=== PATIENT | female | born 1940 | race Caucasian/White ===

== ENCOUNTER 2022-11-07 13:02 | Outpatient (RCR) | payer MEDICARE, BC, SELFPAY ==
--- NOTE | 2022-11-07 14:00 | PT.OPEX ---
PT [place] Out[facility] Eval PT [facility] Out[facility] Eval Start: 11/07/22 12:37 Freq: Status: Active Protocol: Document 11/07/22 12:38 AMI (Rec: 11/07/22 13:56 YEAGERV [id number]) E-signed By Juany Tsang Physical Therapy Outpatient Evaluation Insurance Information Recert Due Date 02/06/23 Insurance Name Medicare B,Blue [employer] Medical Diagnosis M17.11 OA of R knee Z96.651 Presence of artificial R knee joint Treating Diagnosis M25.561 R knee pain M25.661 Stiffness of R knee Referring MD Tovar Subjective Subjective Pt presents pre-op only RTKA on 11/22/[address] Tovar. Pt reports that she was scheduled to get a knee replacement 2 years ago but it started feeling better after she started riding her bike again. It is now giving her more trouble. X-rays show bone on bone. Walking gives patient the most pain. Uses ice and Tylenol for pain management. Pt lives with who has dementia, daughter will be staying for 6 days, then another daughter will be staying for an additional 5 days. Two story home, will stay on main level. 2 steps to enter, B rails. Walk in shower with bath bench. Daughter will be bringing 2WW. Pain Comments -10/24 Date of Next Physician Visit 11/30/22 Date of Surgery (If applicable) 11/22/22 Current Work Status Retired Precautions Treatment Precautions/Contraindications PMHx: LTSA in 2020 Therapy Limitations/Systems Review Not Limited Objective Range of Motion R knee ROM = 0-116 L knee ROM = 0-120 Hamstring length = R hamstring length limited compared to L Strength Hip flexion L/R = 4-/4- Hip abd L/R = 4+/4+ Hip add L/R = 4+/4+ Quads L/R = 4+/4+ Hamstrings L/R = 5/5 Palpation B patellar mobilization WNLs Assessment Assessment/Impression Pt is a 82yo F presenting pre- op only for RTKA on 11/22/22. PMHx: LTSA in 2020. Pt reports that pain has been present for years. Inc with walking. Uses Tylenol and ice for pain management. Pt lives in 2 story home with spouse who has dementia. Pt's two daughter will be staying with her for two weeks. Walk in shower with bath bench. Pt displays dec B hip flexor weakness, dec R knee flexion compared to L, and dec hamstring length on R compared to L. Pt was educated on HEP, POC, post-op precautions, swelling and pain management, fall prevention, equipment needs, and stair training. Pt will be doing post-op PT at [facility]. Primary Functional Limitations Pain with functional activity LE weakness Gait deficits Plan of Care Rehabilitation Potential Excellent Physical Therapy Goals In one session: 1. Pt will be IND with HEP in order to perform at home post- op IND. 2. Pt will navigate 4 steps with B rails using proper step sequencing in order to enter/ exit home safely post-op. 3. Pt will provide verbal understanding of post-op precautions in order to reduce risk of post-op complications . Coordination/Communication With Referral Source Treatment Plan/Direct Interventions Self-Care/Home Management, Therapeutic Exercises Frequency/Duration 1x only (pre-op only) Patient Will Be Discharged From Therapy Completion of LTG(s), Independent w/HEP Evaluation Billing Untimed Code Treatment Minutes 10 PT Eval No Charge No Complexity Low Certification Information Initial Certification Date 11/07/22 Ending Certification Date 02/06/23 Provider Signature Shows Agreement With POC & Medical Necessity Physician Comment/Change : Physician NPI Number #
== END 2022-12-15 10:36 | disposition home or self-care (01) ==
PROVIDERS: PCP Family Medicine; Visit Provider Orthopaedic Surgery
DX: M17.11 Unilateral primary osteoarthritis, right knee (principal); Z96.651 Presence of right artificial knee joint; Z51.89 Encounter for other specified aftercare
CPT/HCPCS: 97110; 97161; 97535

== ENCOUNTER 2022-11-22 07:43 | Day surgery (SDC) | payer MEDICARE, BC, SELFPAY ==
[2022-11-22] VITALS (24 sets, daily range): BP systolic 104–136; BP diastolic 55–97; PULSE 58–78; RESP 14–20; TEMP 35.7–36.7; O2SAT 89–99; BMI 26.4
[2022-11-22] MEDS: OXYCODONE (CR) 10 MG TAB.ER.12H PO (07:47)
[2022-11-22] MEDS: LACTATED RINGERS 1000 ML 1,000 ML 100 ML IV (07:50)
[2022-11-22] MEDS: ACETAMINOPHEN 500 MG TABLET 1000 MG PO ×3 (08:45→21:29)
[2022-11-22] MEDS: fentaNYL 100 MCG/2 ML inj IVP (08:50)
[2022-11-22] MEDS: MIDAZOLAM HCL 1 MG/ML inj IVP (08:50)
--- NOTE | 2022-11-22 09:01 | SUR.PREOP ---
TIME?OUT:?0845 PT/RN/MDA?VERIFICATION?OF?SURGICAL?SITE,?PROCEDURE,?AND?CONSENT OBTAINED?PRIOR?TO?INVASIVE?PROCEDURE.
--- NOTE | 2022-11-22 10:26 | CRLHL7_ITS ---
For Patients: As a result of the Cures Act, medical imaging exams and procedure reports are released immediately into your electronic medical record. You may view this report before your referring provider. If you have questions, please contact your health care provider. Indication: POST OP TKA Technique: Two views right knee Findings/Impression: Hardware from a right total knee arthroplasty is in satisfactory position. Bone alignment is normal. No sign of acute fracture. Postop changes are within normal limits. Dictated by Jim Garcia MD @ 11/22/2022 12:31:28 PM (Electronically Signed)
--- NOTE | 2022-11-22 10:28 | PM.ORPRC ---
Procedure Note Date of procedure: 11/22/22 Procedure: PREOPERATIVE DIAGNOSIS: Right knee osteoarthritis POSTOPERATIVE DIAGNOSIS: Right knee osteoarthritis NAME OF OPERATION: Right total knee arthroplasty SURGEON: Negrito Tovar MD COMPUTER INSTRUCTOR: Sarah Mcbride PA-C ANESTHESIA: Spinal ESTIMATED BLOOD LOSS: 0 mL COMPLICATIONS: None SPECIMENS: None DRAINS: None PREOPERATIVE ANTIBIOTICS: Ancef 2 grams IMPLANTS: 1. J&J Attune # 6 narrow posterior stabilized femur 2. #4 fixed-bearing tibia 3. #6 posterior stabilized, 5 mm fixed-bearing polyethylene 4. 38 patella INDICATIONS: The patient is a 82-year-old with a longstanding history of severe, unrelenting right knee pain secondary to end-stage (grade IV) right knee osteoarthritis. Despite appropriate nonoperative management, including activity modification, anti-inflammatories, uwqy-bvj-yxwzshk pain medication, bracing, physical therapy, and injections they continue to have pain and disability. Operative intervention was offered. The risks, benefits and expected outcomes were discussed in detail. These included but were not limited to: Infection, bleeding, injury to blood vessel or nerve, venous thromboembolism. All questions were answered to their satisfaction. Use of an radiology physician assistant was necessary throughout the case for patient positioning and safety, soft tissue retraction, and closure. PROCEDURE: Spinal anesthesia was administered. The patient was placed supine on the operating table. The radiology physician assistant made sure the patient was positioned appropriately. The lower extremity was prepped and draped in the usual sterile fashion. The limb was exsanguinated with the Armin bandage. The pneumatic tourniquet was inflated to 300 mmHg. A standard anterior incision was made with the knee in flexion. Subcutaneous dissection was sharply taken through fascial layer #1. Full-thickness medial and lateral flaps were elevated. The radiology physician assistant retracted the soft tissues and protected them throughout the case. A standard medial parapatellar approach was made. The patella was everted. The infrapatellar fat pad was preserved. The menisci and cruciate ligaments were sharply d?brided. Marginal osteophytes were d?brided with the rongeur. The drill was used to penetrate the femoral canal. The canal was aspirated and irrigated with pulse lavage. The intramedullary femoral guide was placed for a 5-degree valgus cut, removing 10 mm off the distal femur. The saw was used to make the cut. Whitesides line and the trans epicondylar axis were marked. The femoral sizing guide was pinned onto the distal femur. Three degrees of external rotation nicely parallels the transepicondylar axis. Pins were placed for posterior referencing. The four-in-one cutting guide was pinned onto the distal femur. The anterior, posterior, and chamfer cuts were made. The radiology physician assistant protected the collateral ligaments. The box cutting guide was pinned. The box cuts were made. The boxed trial was placed and was an excellent fit. Drill holes for the lugs were made. Attention was then turned to the proximal tibia. The extramedullary tibial guide was placed for a neutral varus/valgus cut with 5 degrees of posterior slope, removing 1 mm based off the medial tibial surface. The radiology physician assistant protected the collateral ligaments and the neurovascular bundle. The saw was used to make the cut. Trial components were placed. The knee was nicely balanced in both flexion and extension. The trial components were removed. The tray was placed in appropriate rotation, parallel to our tibial cutting pins. It was pinned by the radiology physician assistant and the drill and the punch were used. The tray was removed. The punch was used again. We placed a bone plug in the femoral canal. Attention was then turned to the patella. [place] patellar thickness was 21 mm. The lobster claw resection guide was used with the 7.5 mm burton. The saw was used to make the cut. Drill holes were made by the radiology physician assistant. The trial was placed and was an excellent fit. Cancellous surfaces were irrigated with pulse lavage and thoroughly dried by the radiology physician assistant. We cemented the tibial component, then the femoral component. We impacted the 5 mm polyethylene onto the tibial tray. The knee was brought into full extension. We then cemented the patellar component. Excessive cement was removed. The cement was allowed to harden. The knee was taken through a range of motion and was found to be nicely balanced in both flexion and extension. The patella tracks centrally. The radiology physician assistant did a three minute dilute Betadine solution soak. The radiology physician assistant irrigated the wound with 3 liters of normal saline via pulse lavage. The radiology physician assistant reapproximated the extensor mechanism with #1 Vicryl in an interrupted ffxmvi-go-aiupy fashion. The radiology physician assistant then ran the extensor mechanism with a #1 PDO Stratafix. The radiology physician assistant closed the subcutaneous tissues with a 3-0 Stratafix and the skin with a running 3-0 Stratafix in a subcuticular fashion. Glue was used to seal the skin. The radiology physician assistant placed a dry dressing, DEWEY stocking, and Polar Care. Sponge and needle counts were correct x2. The patient tolerated the procedure well. There were no apparent complications. They were carefully transferred to the hospital bed and taken to the postanesthesia care unit in satisfactory condition. PLAN: The patient will be mobilized with physical therapy. Eliquis will be used for DVT prophylaxis. They will be discharged to home once medically appropriate.
--- NOTE | 2022-11-22 11:24 | P.ANES_ITS ---
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
[2022-11-22] MEDS: HYDROmorphone 0.5 mg/0.5 ml inj IVP (12:46)
--- NOTE | 2022-11-22 14:44 | PM.IMCN1 ---
Date of Consult Consult date: 11/22/22 Requesting Physician: Orthopedics Primary Care Provider: Jessica Zurita MD Consult Narrative Reason for consult: hypertension, afib Narrative: Fernanda Wolfe is a 82 year old female who underwent an elective right total knee arthroplasty today for severe osteoarthritis. Her pain is well controlled and she is sitting up in a chair eating dinner. She has no complaints. Review of Systems Status of ROS: Reports: 6 or more systems reviewed and unremarkable except as noted in History and below PFSH PFS Medical History (Updated 11/22/22 @ 19:05 by Alana Hess MD) Vitiligo ?L80 - Vitiligo (ICD-10) PAC (premature atrial contraction) ?I49.1 - Atrial premature depolarization (ICD-10) Impaired fasting glucose ?R73.01 - Impaired fasting glucose (ICD-10) Osteopenia ?M85.80 - Other specified disorders of bone density and structure, unspecified site (ICD-10) Rosacea, unspecified ?L71.9 - Rosacea, unspecified (ICD-10) Atrophic vaginitis ?N95.2 - Postmenopausal atrophic vaginitis (ICD-10) Postnasal drip ?R09.82 - Postnasal drip (ICD-10) Personal history of other malignant neoplasm of skin ?Z85.828 - Personal history of other malignant neoplasm of skin (ICD-10) Female genital prolapse ?N81.9 - Female genital prolapse, unspecified (ICD-10) Atrial fibrillation ?I48.91 - Unspecified atrial fibrillation (ICD-10) Hyperlipidemia ?E78.5 - Hyperlipidemia, unspecified (ICD-10) Hypertension ?I10 - Essential (primary) hypertension (ICD-10) Surgical History (Updated 11/22/22 @ 19:03 by Alana Hess MD) History of bladder surgery ?Z98.890 - Other specified postprocedural states (ICD-10) Hx of colonoscopy ?Z98.890 - Other specified postprocedural states (ICD-10) Hx of breast biopsy (~1995) ?Z98.890 - Other specified postprocedural states (ICD-10) H/O: hysterectomy (~2015) ?Z90.710 - Acquired absence of both cervix and uterus (ICD-10) History of reverse total replacement of left shoulder joint (2020) ?Z98.890 - Other specified postprocedural states (ICD-10) Family History (Updated 11/22/22 @ 14:44 by Alana Hess MD) Father Lung cancer Mother Myocardial infarction Sister High blood pressure Paternal Grandmother Breast cancer Social History (Updated 11/22/22 @ 17:54 by Alana Hess MD) Narrative: Retired from [employer]. Never smoker. 1alcoholic drink per month. Denies recreational drug use. Smoking Status: Never smoker Do you use any of these nicotine containing products: None Second hand tobacco smoke exposure: No How often do you have a drink containing alcohol: monthly or less Alcohol type: wine and hard liquor How many standard drinks containing alcohol do you have on a typical day: 1 or 2 How often do you have six or more drinks on one occasion: Never AUDIT-C Alcohol total score: 1 Non-prescribed substance use: denies use Caffeine: Yes (coffee, 1 cup/day) service: No Meds Home Medications and Allergies Home Medications Medication Instructions Recorded Confirmed Type alendronate 70 mg tablet 70 mg PO Q7D 09/19/22 11/22/22 History amlodipine 2.5 mg tablet 2.5 mg PO BID 09/19/22 11/22/22 History ammonium lactate 12 % topical cream 1 applic topical BID PRN 09/19/22 11/22/22 History apixaban 5 mg tablet (Eliquis) 5 mg PO BID 09/19/22 11/22/22 History atenolol 50 mg tablet 50 mg PO BID 09/19/22 11/22/22 History atorvastatin 10 mg tablet 10 mg PO HS 09/19/22 11/22/22 History duloxetine 30 mg capsule,delayed 30 mg PO DAILY 09/19/22 11/22/22 History release estradiol 10 mcg vaginal tablet 10 mcg vaginal 2XW 09/19/22 11/22/22 History metronidazole 0.75 % topical cream 1 applic topical DAILY PRN 09/19/22 11/22/22 History tretinoin 0.1 % topical cream 1 applic topical HS PRN 09/19/22 11/22/22 History (Retin-A) triamcinolone acetonide 0.1 % 1 applic topical BID PRN 09/19/22 11/22/22 History topical cream valsartan 320 1 tab PO DAILY 09/19/22 11/22/22 History mg-hydrochlorothiazide 12.5 mg tablet calcium carbonate 600 mg-vitamin 1 tab PO DAILY 11/22/22 11/22/22 History D3 10 mcg (400 unit) tablet (Calcium 600 + D(3)) Allergies Allergy/AdvReac Type Severity Reaction Status Date / Time fenoprofen Allergy Verified 11/22/22 08:06 ibuprofen Allergy Abdominal Verified 11/22/22 09:05 Pain diphenhydramine AdvReac Unknown Irritable Verified 11/22/22 09:05 aspirin AdvReac Gastrointestinal Verified 11/22/22 08:06 Upset lisinopril AdvReac Cough Verified 11/22/22 08:06 methocarbamol AdvReac Headache Verified 11/22/22 08:06 Exam Narrative: Exam Narrative: General: No acute distress. Awake alert oriented x3. HEENT: Normocephalic atraumatic, pupils equally round and reactive to light and accommodation. Oropharynx clear. Mucous membranes are moist. No cervical lymphadenopathy, thyromegaly or carotid bruits. No JVD. Cardiovascular: Regular rate and rhythm. No murmurs, gallops, or rubs. Chest: No increased work of breathing. Clear to auscultation bilaterally. No crackles or wheezes. Abdomen: Bowel sounds present. Soft, nondistended, nontender. No hepatosplenomegaly or masses. Extremities: Right knee bandage is clean, dry, and intact. No edema, no cyanosis or clubbing. Skin: No jaundice, no pallor, no rashes. Const: Vital Signs, click to edit/add: Vital Signs - 24 hr 11/22/22 08:30 11/22/22 08:45 11/22/22 11:18 Temperature 98.0 F 97.5 F L Pulse Rate 58 L 60 66 Pulse Rate [Right Pulse Oximeter] Respiratory Rate 16 16 16 Blood Pressure 130/59 L 136/55 L 130/74 Blood Pressure [Ri ght Arm] Pulse Oximetry 99 99 94 Oxygen Delivery Me thod Room Air Nasal Cannula Nasal Cannula Oxygen Flow Rate 2 2 11/22/22 11:20 11/22/22 11:25 11/22/22 11:30 Temperature Pulse Rate 65 66 65 Pulse Rate [Right Pulse Oximeter] Respiratory Rate 16 14 20 Blood Pressure 132/71 122/69 127/76 Blood Pressure [Ri ght Arm] Pulse Oximetry 96 96 94 Oxygen Delivery Me thod Oxygen Flow Rate 11/22/22 11:35 11/22/22 11:40 11/22/22 11:45 Temperature 98 F Pulse Rate 62 64 65 Pulse Rate [Right Pulse Oximeter] Respiratory Rate 16 14 14 Blood Pressure 129/71 136/72 132/70 Blood Pressure [Ri ght Arm] Pulse Oximetry 98 98 97 Oxygen Delivery Me thod Nasal Cannula Oxygen Flow Rate 2 11/22/22 11:55 11/22/22 11:55 11/22/22 12:00 Temperature 96.3 F L 96.3 F L Pulse Rate 68 68 Pulse Rate [Right Pulse Oximeter] 66 Respiratory Rate 14 16 16 Blood Pressure Blood Pressure [Ri ght Arm] 125/72 125/72 129/68 Pulse Oximetry 92 Oxygen Delivery Me thod Room Air Room Air Room Air Oxygen Flow Rate 11/22/22 12:06 11/22/22 12:28 11/22/22 12:33 Temperature 96.3 F L Pulse Rate Pulse Rate [Right Pulse Oximeter] 68 66 68 Respiratory Rate 14 14 16 Blood Pressure Blood Pressure [Ri ght Arm] 129/68 127/74 Pulse Oximetry 94 90 Oxygen Delivery Me thod Room Air Room Air Room Air Oxygen Flow Rate 11/22/22 12:49 11/22/22 13:01 11/22/22 13:18 Temperature 96.3 F L Pulse Rate Pulse Rate [Right Pulse Oximeter] 70 64 65 Respiratory Rate 16 16 16 Blood Pressure Blood Pressure [Ri ght Arm] 107/68 129/84 118/74 Pulse Oximetry 92 91 90 Oxygen Delivery Me thod Room Air Nasal Cannula Nasal Cannula Oxygen Flow Rate 2 1 1 11/22/22 13:45 11/22/22 14:01 11/22/22 14:30 Temperature Pulse Rate Pulse Rate [Right Pulse Oximeter] 71 67 68 Respiratory Rate 16 16 16 Blood Pressure Blood Pressure [Ri ght Arm] 110/65 109/65 115/77 Pulse Oximetry 92 92 91 Oxygen Delivery Me thod Nasal Cannula Nasal Cannula Room Air Oxygen Flow Rate 1 1 Labs Labs: Ordering Physician: Negrito Tovar M.D. Date of Service: 11/22/22 Procedure(s): XR knee RT 2V Accession Number(s): [id number] cc: Negrito Tovar M.D.; Jessica Zurita M.D.~ For Patients: As a result of the Century Cures Act, medical imaging exams and procedure reports are released immediately into your electronic medical record. You may view this report before your referring provider. If you have questions, please contact your health care provider. Indication: POST OP TKA Technique: Two views right knee Findings/Impression: Hardware from a right total knee arthroplasty is in satisfactory position. Bone alignment is normal. No sign of acute fracture. Postop changes are within normal limits. Dictated by Jim Garcia MD @ 11/22/2022 12:31:28 PM (Electronically Signed) Assessment and Plan Assessment and plan (1) S/P total knee arthroplasty: Problem comment: - 11/22/22 [place] - cares per ortho - pain well controlled Status: Acute (2) Osteoarthritis of right knee: Status: Chronic (3) Atrial fibrillation: Problem comment: - in and out of atrial fib - diagnosed spring 2020: Eliquis - monitor on telemetry overnight, continue atenolol. I have spoken with Maday from Ortho who agreed it was okay to restart her Eliquis tomorrow morning. Status: Chronic (4) Hypertension: Problem comment: Continue atenolol for rate control, but hold her other blood pressure medications as her blood pressures are low-normal might now. These can be restarted upon discharge. Status: Chronic (5) Impaired fasting glucose: Problem comment: No treatment. Status: Chronic (6) Hyperlipidemia: Problem comment: Continue medication Status: Chronic Plan VTE prophylaxis with Eliquis which she takes for atrial fibrillation to start tomorrow morning.
[2022-11-22] MEDS: CEFAZOLIN 2 GM in 0.9 % SODIUM CHLORIDE Mini-bag 100 ML IVPB ×2 (16:56→23:20)
[2022-11-22] MEDS: OXYCODONE 5 MG TABLET PO (16:57)
--- NOTE | 2022-11-22 19:18 | PC.NURSE ---
Nursing Care Hours: [id number] Pt this shift calm and cooperative with cares. spinal anesthesia in OR, post op VS ended per policy, pt remains stable. SpO2 drops to 88% on RA while sleeping, HOB raised, PRN oxygen available. Pain managed per eMAR. Up to bathroom and ambulating carter with SB assist using walker and gait belt. Pedal pulse present, CMS intact, bandage CDI.
[2022-11-22] MEDS: atenoloL 50 MG TABLET PO (21:31)
[2022-11-22] MEDS: ONDANSETRON 2 MG/ML inj 4 MG IVP (21:52)
--- NOTE | 2022-11-22 23:21 | PC.NURSE ---
[id number]: Pt A&O. VSS w/ sats >90% on RA. Pt had one emesis this evening. Zofran given, pt stated relief. dressing to knee c/d/i. Rates pain 2-310. Pain well controlled w/ Tylenol. Pt declined PRN pain medication. A1 w/ walker and gait belt. Saline locked. voiding appropriately. Tele shoes normal sinus w/ frequent PACs. updated, no change.
[2022-11-23 00:44] VITALS: PULSE 67
[2022-11-23 03:00] VITALS: BP 134/71; PULSE 78; RESP 16; TEMP 36.6; O2SAT 93
[2022-11-23] MEDS: ACETAMINOPHEN 500 MG TABLET 1000 MG PO ×2 (03:32→08:47)
[2022-11-23 06:39] LABS: Basophils Percent Auto 0.1 % (0.0-3.0); Hematocrit 40.8 % (33.0-51.0); Hemoglobin* 13.6 gm/dL (12.0-16.0); Immature Granulocytes Pct Auto 0.9 %; Mean Corpuscular HGB Conc 33 gm/dL (32-36); Mean Corpuscular Hemoglobin 31 pg (26-34); Mean Corpuscular Volume 92 fL (80-100); Monocytes Percent Auto 12.6 % (0.0-11.0); Neutrophils Percent Auto 81.4 % (42.0-72.0); Platelet Count* 243 K/uL (140-440); RDW Coefficient of Variation % 11.9 % (11.5-15.5); Red Blood Count 4.43 m/uL (4.00-5.20); White Blood Count* 11.67 K/uL (4.50-11.00)
[2022-11-23 06:41] LABS: Slide Review Reflex No
--- NOTE | 2022-11-23 06:54 | PC.NURSE ---
Shift note: Pt is doing well with A1, walker and GB ambulating to and from BR. Alert and oriented, pain level have been rated at 2. Vitally stable. Dressing appears clean and dry. Pulse and CMS intact in the right lower extremity. O2 level tend to desaturate when pt is sleeping and was supported with 0.5L of oxygen. Tele reading shift from NSR to A.fib at 0100 and EKG done. Pt requested to be transferred to the recliner at 0630.
[2022-11-23 07:08] LABS: Potassium* 3.8 mmol/L (3.6-5.1); Sodium* 134 mmol/L (135-149)
[2022-11-23 07:09] LABS: INR 1.17 (0.91-1.10); Prothrombin Time 15.6 Seconds
[2022-11-23 07:11] LABS: Blood Urea Nitrogen* 16 mg/dL (7-30); Creatinine* 0.5 mg/dL (0.5-1.5); Est. Creatinine Clearance* 38.36; Estimated Glomerular Filt Rate 93 ml/min
[2022-11-23 07:20] VITALS: PULSE 66; PULSE 70; RESP 16; O2SAT 94
[2022-11-23 07:30] VITALS: BP 141/69; PULSE 66; RESP 16; TEMP 36.6; O2SAT 94
[2022-11-23] MEDS: APIXABAN 5 MG TABLET PO (08:47)
[2022-11-23] MEDS: SENNOSIDES 1 TAB TABLET 2 TAB PO (08:47)
[2022-11-23] MEDS: atenoloL 50 MG TABLET PO (08:48)
[2022-11-23] MEDS: DULOXETINE 30 MG CAPSULE DR PO (08:48)
[2022-11-23] MEDS: OXYCODONE 5 MG TABLET PO ×2 (08:48→11:25)
--- NOTE | 2022-11-23 09:06 | P.ORPN_ITS ---
Subjective Subjective Time Seen by Provider: 07:15 Date Seen: 11/23/22 Principal diagnosis: Status post right knee replacement 11/22/2022 Interval history: Fernanda is comfortable this morning. She will discharge to home today with her daughter. Ortho Exam Narrative Exam Narrative: Alert and oriented x3. Patient is in no acute distress. Converses without labored breathing. Hearing is grossly intact. Ambulates with a walker. Examination of the right lower extremity shows the dressing is intact. Mild soft tissue edema. Mild effusion. Good quad function this morning 08/19. Bilateral calves are soft and nontender. CMS is intact right lower extremity. Const Vital Signs, click to edit/add: Vital Signs - 24 hr 11/22/22 11:18 11/22/22 11:20 11/22/22 11:25 Temperature 97.5 F L Pulse Rate 66 65 66 Pulse Rate [Right Pulse Oximeter] Respiratory Rate 16 16 14 Blood Pressure 130/74 132/71 122/69 Blood Pressure [Right Arm] Pulse Oximetry 94 96 96 Oxygen Delivery Method Nasal Cannula Oxygen Flow Rate 2 11/22/22 11:30 11/22/22 11:35 11/22/22 11:40 Temperature Pulse Rate 65 62 64 Pulse Rate [Right Pulse Oximeter] Respiratory Rate 20 16 14 Blood Pressure 127/76 129/71 136/72 Blood Pressure [Right Arm] Pulse Oximetry 94 98 98 Oxygen Delivery Method Oxygen Flow Rate 11/22/22 11:45 11/22/22 11:55 11/22/22 11:55 Temperature 98 F 96.3 F L 96.3 F L Pulse Rate 65 68 68 Pulse Rate [Right Pulse Oximeter] Respiratory Rate 14 14 16 Blood Pressure 132/70 Blood Pressure [Right Arm] 125/72 125/72 Pulse Oximetry 97 Oxygen Delivery Method Nasal Cannula Room Air Room Air Oxygen Flow Rate 2 11/22/22 12:00 11/22/22 12:06 11/22/22 12:28 Temperature 96.3 F L Pulse Rate Pulse Rate [Right Pulse Oximeter] 66 68 66 Respiratory Rate 16 14 14 Blood Pressure Blood Pressure [Right Arm] 129/68 129/68 Pulse Oximetry 92 94 Oxygen Delivery Method Room Air Room Air Room Air Oxygen Flow Rate 11/22/22 12:33 11/22/22 12:49 11/22/22 13:01 Temperature 96.3 F L Pulse Rate Pulse Rate [Right Pulse Oximeter] 68 70 64 Respiratory Rate 16 16 16 Blood Pressure Blood Pressure [Right Arm] 127/74 107/68 129/84 Pulse Oximetry 90 92 91 Oxygen Delivery Method Room Air Room Air Nasal Cannula Oxygen Flow Rate 2 1 11/22/22 13:18 11/22/22 13:45 11/22/22 14:01 Temperature Pulse Rate Pulse Rate [Right Pulse Oximeter] 65 71 67 Respiratory Rate 16 16 16 Blood Pressure Blood Pressure [Right Arm] 118/74 110/65 109/65 Pulse Oximetry 90 92 92 Oxygen Delivery Method Nasal Cannula Nasal Cannula Nasal Cannula Oxygen Flow Rate 1 1 1 11/22/22 14:30 11/22/22 15:00 11/22/22 15:00 Temperature Pulse Rate Pulse Rate [Right Pulse Oximeter] 68 77 Respiratory Rate 16 Blood Pressure Blood Pressure [Right Arm] 115/77 Pulse Oximetry 91 89 Oxygen Delivery Method Room Air Oxygen Flow Rate 11/22/22 15:00 11/22/22 19:00 11/22/22 22:00 Temperature 97.8 F Pulse Rate 71 Pulse Rate [Right Pulse Oximeter] 77 78 Respiratory Rate 14 16 Blood Pressure Blood Pressure [Right Arm] 104/65 134/97 H Pulse Oximetry 89 92 Oxygen Delivery Method Room Air Room Air Oxygen Flow Rate 11/22/22 23:00 11/22/22 23:00 11/22/22 23:00 Temperature 97.8 F Pulse Rate Pulse Rate [Right Pulse Oximeter] 66 66 Respiratory Rate 16 Blood Pressure Blood Pressure [Right Arm] 112/55 L Pulse Oximetry 91 91 Oxygen Delivery Method Room Air Oxygen Flow Rate 11/23/22 00:44 11/23/22 03:00 11/23/22 07:20 Temperature 97.9 F Pulse Rate 67 70 Pulse Rate [Right Pulse Oximeter] 78 Respiratory Rate 16 Blood Pressure Blood Pressure [Right Arm] 134/71 Pulse Oximetry 93 Oxygen Delivery Method Room Air Oxygen Flow Rate 11/23/22 07:20 11/23/22 07:20 11/23/22 07:30 Temperature 97.9 F Pulse Rate Pulse Rate [Right Pulse Oximeter] 66 66 Respiratory Rate 16 16 Blood Pressure Blood Pressure [Right Arm] 141/69 H Pulse Oximetry 94 94 Oxygen Delivery Method Room Air Oxygen Flow Rate Assessment and Plan Assessment and plan (1) S/P total knee arthroplasty: Problem details: - 11/22/22 [place] - cares per ortho - pain well controlled Status: Acute Assessment and Plan: Plan for discharge is today to home if they meet discharge criteria. Her daughters will be staying with her. DVT prophylaxis includes Eliquis, she takes this twice daily for AFib., Jb stockings x1 month may remove for 1 hr per day, frequent ambulation Remove dressing in 1 week. Observe wound and phone Orthopedics with any que stions or concerns Return to clinic in 1 week for a wound check Return to clinic in 6 weeks with surgeon Minimize narcotic use. Wean off and discontinue soon as possible. Activities as tolerated. No strenuous activity. Outpatient physical therapy as scheduled. Ice and elevate the operative extremity. No restriction on ice. (2) Osteoarthritis of right knee: Status: Chronic (3) Atrial fibrillation: Problem details: - in and out of atrial fib - diagnosed spring 2020: Eliquis - monitor on telemetry overnight, continue atenolol. I have spoken with Maday from Ortho who agreed it was okay to restart her Eliquis tomorrow morning. Status: Chronic (4) Hypertension: Problem details: Continue atenolol for rate control, but hold her other blood pressure medications as her blood pressures are low-normal might now. These can be restarted upon discharge. Status: Chronic (5) Impaired fasting glucose: Problem details: No treatment. Status: Chronic (6) Hyperlipidemia: Problem details: Continue medication Status: Chronic
--- NOTE | 2022-11-23 09:39 | PC.SOCIAL ---
Discharge Plan: Met with patient, Fernanda, spouse and daughter. Fenranda will be going home with spouse. Daughter will be staying for a few days and another daughter will take over for as long as she needs extra help. No questions or concerns. Social work to follow up as needed.
--- NOTE | 2022-11-23 11:48 | PC.NURSE ---
discharge pt has been very pleasant, pain 2-4/10 pain well controlled with po pain meds : Pt is up with A1, walker and GB ambulating to and from BR. she is eating drinking and voiding. dressing is C/D/I. cryo cuff to the knee. SL was d/c intact and tele was NSR and D/C. went over discharge packet with pt and daughter. went over medications, appointments, instruction and education. pt went over and signed personal belong sheet. she got a w/c ride out.
--- NOTE | 2022-12-01 09:38 | P.NB_ITS ---
Nerve Block Nerve Block Time Seen by Provider: 08:45 Date Seen: 11/22/22 Type of block requested by surgeon for post-operative analgesia: adductor canal Side: right Time out performed: Yes Verification of patient name: Yes Verification of date of : Yes Site marking: site marked Name of person performing procedure: pretty Continuous monitoring Was continuous monitoring of O2 sat, B/P, director of cardiac rehabilitation, recorded every 15 minutes?: Yes Procedure Checklist: sterile prep and needles Ultrasound guided. Images saved: Yes Medications given in 5ml increments after negative aspiration: Ropivicaine %: 0.5 mL: 20 Needle gauge: 20 Decadron (mg): 10 Precedex (mcg): 25 Patient tolerated procedure well: Yes Block Charges Block Charge (with Pro Fee): Femoral Nerve Use of Ultrasound Machine for Block: Yes- US Guidance/pain block
--- NOTE | 2022-12-01 09:40 | P.NB_ITS ---
Nerve Block Nerve Block Time Seen by Provider: 08:45 Date Seen: 11/22/22 Type of block requested by surgeon for post-operative analgesia: geniculars Side: right Time out performed: Yes Verification of patient name: Yes Verification of date of : Yes Site marking: site marked Name of person performing procedure: pretty Continuous monitoring Was continuous monitoring of O2 sat, B/P, monitor car operator, recorded every 15 minutes?: Yes Procedure Checklist: needles Ultrasound guided. Images saved: No Medications given in 5ml increments after negative aspiration: Ropivicaine %: 0.5 mL: 12 Needle gauge: 25 Patient tolerated procedure well: Yes Block Charges Block Charge (with Pro Fee): Genicular Nerve Block Use of Ultrasound Machine for Block: No
== END 2022-11-23 11:40 | disposition home or self-care (01) ==
LOC: OR 07:44 → MEDSURG 07:51
PROVIDERS: PCP Family Medicine; Visit Provider Orthopaedic Surgery
PROC: (CPT 27447; principal; 2022-11-22 09:30)
DX: M17.11 Unilateral primary osteoarthritis, right knee (principal); G89.18 Other acute postprocedural pain; I10 Essential (primary) hypertension; I48.91 Unspecified atrial fibrillation; Z79.01 Long term (current) use of anticoagulants; R73.01 Impaired fasting glucose; E78.5 Hyperlipidemia, unspecified
CPT/HCPCS: 27447; 1402; 36415; 64447; 64454; 73560; 76942; 82565; 84132; 84295; 84520; 85025; 85610; 97110; 97116; 97161; 97165; 97530; 97535; 99100; A9270; C1776; J0690; J1100; J1170; J2250; J2405; J2704; J2795; J3010; J7120

== ENCOUNTER 2024-01-16 09:53 | Outpatient (CLI) | payer MEDICARE, BC, SELFPAY ==
--- OUTSIDE RECORDS SUMMARY | 2024-01-16 09:58 | XMS_ITS | Clinical Summary ---
Author Organization [facility] Address [address] [place] [id number] Care Team Providers Care Seam Taper Machine Name Role Phone Jessica Zurita MD Primary Care Provider [phone] Source Comments You are receiving this document as you are listed as the primary care provider,follow-up provider, or the patient has been referred to you for consultation.This is in compliance with the Medicare and[facility]centive [facility],which states Providers who transition their patient to another setting of careor provider of care or refers their patient to another provider of care shouldprovide summary care record for each transition of care or referral. [place] Allergies Active Allergy Reactions Criticality Noted Date Comments Aspirin Other, see comments 03/31/2020 Stomache ache Diphenhydramine Other, see comments 03/31/2020 Stomach ache Fenoprofen Other, see comments 03/31/2020 Stomach ache Ibuprofen Other, see comments 03/31/2020 Stomach ache Lisinopril Cough 03/31/2020 Medications Medication Sig Dispensed Refills Start Date End Date Status amLODIPine (NORVASC) 2.5 MG tablet Take 2.5 mg by mouth. 03/19/2020 Active atenolol (TENORMIN) 50 MG tablet Take 50 mg by mouth two times a day. 03/25/2020 Active atorvastatin (LIPITOR) 10 MG tablet Take 10 mg by mouth daily at bedtime. 02/15/2020 Active celecoxib (CELEBREX) 100 MG capsule 100 mg two times a day with meals. 03/25/2020 Active cetirizine (ZYRTEC) 10 MG tablet Take 10 mg by mouth. Acti ve diclofenac (VOLTAREN) 1 % gel use 2-3 times daily as needed for joint pain 02/28/2020 Active DULoxetine (CYMBALTA) 30 MG capsule Take 30 mg by mouth daily. 03/17/2020 Active metroNIDAZOLE (METROCREAM) 0.75 % cream APPLY A THIN LAYER TO ENTIRE FACE AND NECK ONCE TO TWICE DAILY 02/11/2020 Active Valsartan-hydroCH LOROthiazide (DIOVAN-HCT) 320-12.5 MG tablet Take 1 Tablet by mouth daily. 01/29/2020 Active tretinoin (RETIN-A) 0.1 % cream APPLY A PEA SIZED AMOUNT TO FACE EVERY OTHER NIGHT INCREASING TO NIGHTLY TOLERATED. FOLLOW WITH A MOISTURIZER 02/12/2020 Active calcium carb-cholecalcife rol (CALCIUM + D3) 600-800 MG-UNIT tablet Take 3 Tablets by mouth daily with breakfast. Active fluticasone propionate (FLONASE) 50 MCG/ACT nasal solution Place 2 Sprays into both nostrils daily. Active omega-3 fatty acids (FISH OIL) 1000 MG capsule Take 2 g by mouth daily. Active estradiol 10 MCG TABS vaginal tablet Don't use for 2 weeks following surgery as it increases blood clot risk. 05/15/2020 Active acetaminophen (TYLENOL) 500 MG tabletIndications :Pain Take 2 Tablets by mouth three times a day. 24 hour limit of acetaminophen (TYLENOL) is 4000mg. 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 Tyson Grissom at [facility]. History of basal cell carcinoma (BCC) 04/06/2018 Vaginitis, atrophic 04/06/2018 Osteoarthritis of knee 10/15/2017 History of falling 03/30/2017 Osteopenia 09/30/2016 Abnormal levels of other serum enzymes 7 Essential hypertension 03/15/2016 Overview (05/15/2020): Hypertension (HTN) Essential Benign Hypertension (HTN) Essential Benign Hyperlipidemia 03/15/2016 Vitamin D deficiency 03/15/2016 Female genital prolapse 04/16/2015 Basal cell carcinoma (BCC) of scalp 07/31/2013 Overview (05/15/2020): 2002 - Dr. Cristo Ellison 07/22/2013 Shoulder pain 02/25/2013 Overview (05/15/2020): RIGHT Varicose veins of lower extremity 01/28/2013 Vitiligo 03/09/2011 Rosacea 01/14/2010 Resolved Problems Problem Noted Date Diagnosed Date Resolved Date Atrial fibrillation with RVR 05/15/2020 05/16/2020 Shoulder arthritis 04/28/2020 Overview (04/28/2020): Added automatically from request for surgery [id number] Social History Tobacco Use Types Packs/Day Years Used Date Smoking Tobacco: Never Smokeless Tobacco: Never Sex and Gender Information Value Date Recorded Sex Assigned at Not on file Gender Identity Not on file Sexual Orientation Not on file Last Filed Vital Signs Vital Sign Reading Time Taken Comments Blood Pressure 122/59 05/16/2020 2:29 PM TANK INSULATOR RUBBER Pulse 69 05/16/2020 2:29 PM TANK INSULATOR RUBBER Temperature 36.6 ??C (97.9 ??F) 05/16/2020 2:29 PM CS T Respiratory Rate 19 05/16/2020 2:29 PM TANK INSULATOR RUBBER Oxygen Saturation 98% 05/16/2020 2:29 PM TANK INSULATOR RUBBER Inhaled Oxygen Concentration - - Weight 69.6 kg (153 lb 6.4 oz) 05/15/2020 10:27 AM TANK INSULATOR RUBBER Height 166.4 cm (5' 5.5) 05/15/2020 10:27 AM CS T Body Mass Index 25.14 05/15/2020 10:27 AM TANK INSULATOR RUBBER Plan of Treatment Health Maintenance Due Date Last Done Comments Medicare Annual Wellness Visit 1940 RSV (1 - 1-dose 75+ series) 06/25/2014 COVID-19 Vaccine ( - season) 2023 01/14/2021, 06/17/2020, 05/27/2020 Influenza (#1) 2023 01/14/2021, 01/15, 04/02/2019, Additional history exists DTaP/Tdap/Td (4 - Tdap) 02/06/2024 02/06/20 14, 02/05/2014, 09/06/2004, Additional history exists HepA Aged Out 06/30/2005, 12/12/2003 No lo nger eligible based on patient's age to complete this topic Pneumococcal 65+ Yrs Completed 02/25/2015, 09/07/19 Zoster/Shingles Completed 11/22/2017, 05/2017, 10/27/2006 Dexa Completed 05/17/2021, 05/10/2019 HepB Aged Out No longer eligi ble based on patient's age to complete this topic Hib Aged Out No longer eligi ble based on patient's age to complete this topic IPV (Polio) Aged Out No longer eligi ble based on patient's age to complete this topic MCV4 Aged Out No longer eligi ble based on patient's age to complete this topic Medical Devices Implanted Type Area Shearing Supervisor Device Identifier Shelf Expiration Date Model / Serial / Lot Bsplt Comp Rvrs 25mm Isaac+ - [id number] Implanted:Qty : 1 on 05/15/2020 by Tyson Grissom MD at [facility] DEVICE Left: SHOULDER [employer] - Orthopedics 12/26/2029 [id number] / 000 / [id number] Scr Cntrl Comp 6.5x25 St - [id number] Implanted:Qty : 1 on 05/15/2020 by Tyson Grissom MD at [facility] DEVICE Left: SHOULDER [employer] - Trauma 03/31/2030 [id number] / 000 / [id number] Scr Lk Comp 4.75x30 St - [id number] Implanted:Qty : 1 on 05/15/2020 by Tyson Grissom MD at [facility] DEVICE Left: SHOULDER [employer] - Orthopedics 01/26/2030 [id number] / 000 / [id number] Scr Lk Comp 4.75x15 St - [id number] Implanted:Qty : 2 on 05/15/2020 by Tyson Grissom MD at [facility] DEVICE Left: SHOULDER [employer] - Orthopedics 04/28/2030 [id number] / 000 / [id number] Scr Lk Comp 4.75x40 St - [id number] Implanted:Qty : 1 on 05/15/2020 by Tyson Grissom MD at [facility] DEVICE Left: SHOULDER [employer] - Orthopedics 10/29/2029 [id number] / 000 / [id number] Stem Rvrs Shld Yogesh 12mm - [id number] Implanted:Qty : 1 on 05/15/2020 by Tyson Grissom MD at [facility] DEVICE Left: SHOULDER [employer] - Trauma 12/15/2028 [id number] / 000 / [id number] Tray Hum Std - [id number] Implanted:Qty : 1 on 05/15/2020 by Tyson Grissom MD at [facility] DEVICE Left: SHOULDER [employer] 11/29/2029 [id number] / 000 / [id number] Bear Hmrl Prlng 40mm - [id number] Implanted:Qty : 1 on 05/15/2020 by Tyson Grissom MD at [facility] DEVICE Left: SHOULDER [employer] 02/15/2024 [id number] / 000 / [id number] Versa-Dial Bryon Std 40mm - [id number] Implanted:Qty : 1 on 05/15/2020 by Tyson Grissom MD at [facility] DEVICE Left: SHOULDER [employer] 09/14/2029 [id number] / 000 / [id number] Advance Directives * Full Code (Latest Code Status on File) Date Activated Date Inactivated Comments 05/15/2020 3:28 PM 05/16/2020 6:50 PM Care Teams Seam Taper Machine Relationship Specialty Start Date End Date Jessica Zurita MD [address] [place] [id number] PCP - General Family Practice 03/31/20
--- OUTSIDE RECORDS SUMMARY | 2024-01-16 09:58 | XMS_ITS | Clinical Summary ---
Author Organization [facility] [facility] Address [place], [place] [address] Care Team Providers Care Director Medical Economics Name Role Phone Jessica Zurita MD Primary Care Provider [phone] Latonya Euceda RN Unavailable Allergies Active Allergy Reactions Criticality Noted Date Comments Aspirin Stomach Upset 01/14/2010 esophagitis Diphenhydramine Hcl Stomach Upset 01/14/2010 Jitteriness Fenoprofen Stomach Upset 12/17/2009 esophagitis Lisinopril Cough 12/17/2009 Methocarbamol Headache 01/14/2010 Ceftriaxone Rash 08/09/2023 Medications Medication Sig Dispensed Refills Start Date End Date Status calcium carbonate-vitamin D3 600 mg (1,500 mg)-800 unit chew Chew 2 Tablets by mouth once daily with a meal. 0 Active metroNIDAZOLE 0.75 % cream Apply topically to affected area(s) once daily. 7 Active triamcinolone (ARISTOCORT; KENALOG) 0.1 % cream APPLY TWICE A DAY TO LOWER LEGS FOR 2 WEEKS PER MONTH REPEAT NEEDED FOR FLARES 2 Active acetaminophen (Tylenol Extra Strength) 500 mg tablet Take 500 mg by mouth every 6 hours if needed for Pain or Temp > (Specify). Max acetaminophen dose: 4000mg in 24 hrs. Active estradioL (VAGIFEM) 10 mcg tab vaginal tabletIndications:V aginitis, atrophic INSERT 1 TABLET INTO THE VAGINA MONDAY AND MONDAY 25 Tablet 3 4 Active alendronate (FOSAMAX) 70 mg tabletIndications:O steopenia, unspecified location Take 1 Tablet (70 mg) by mouth once a week in the morning. Take on empty stomach with full glass of water. Do not lie down for 1 hr. 12 Tablet 3 4 Active atorvastatin (LIPITOR) 10 mg tabletIndications:H yperlipidemia, unspecified hyperlipidemia type Take 1 Tablet (10 mg) by mouth once daily with evening meal. 90 Tablet 4 Active fluticasone (50 mcg per actuation) nasal solution (FLONASE)Indication s:Allergic rhinitis due to pollen, unspecified seasonality Inhale 2 Sprays into affected nostril(s) once daily. 48 g 4 Active valsartan-hydrochlo rothiazide (DIOVAN) 320-12.5 mg tabletIndications:P aroxysmal atrial fibrillation (HC) Take 1 Tablet by mouth once daily. 90 Tablet 1 4 Active apixaban (Eliquis) 5 mg tabletIndications:P aroxysmal atrial fibrillation (HC) Take 1 Tablet (5 mg) by mouth two times daily. 180 Tablet 4 Active furosemide (LASIX) 20 mg tabletIndications:E milton, unspecified type Take 1 Tablet (20 mg) by mouth once daily in the morning. 90 Tablet 4 Active DULoxetine (CYMBALTA) 30 mg Delayed-release capsuleIndications: Osteoarthritis, unspecified osteoarthritis type, unspecified site Take 1 Capsule (30 mg) by mouth once daily. take in the evening 30 Capsule 4 Active predniSONE (DELTASONE) 5 mg tabletIndications:R heumatoid arthritis with negative rheumatoid factor, involving unspecified site (HC) Take 1.5 Tablets (7.5 mg) by mouth once daily with a meal. 45 Tablet 5 4 Active folic acid 1 mg tabletIndications:R heumatoid arthritis with negative rheumatoid factor, involving unspecified site (HC) Take 1 Tablet (1 mg) by mouth once daily. 90 Tablet 2 4 Active omeprazole (PRILOSEC) 20 mg Delayed-Release capsuleIndications: Rheumatoid arthritis with negative rheumatoid factor, involving unspecified site (HC) Take 1 Capsule (20 mg) by mouth once daily before a meal. 90 Capsule 4 Active metoprolol succinate SR (TOPROL XL) 100 mg Sustained-Release tabletIndications:A trial fibrillation with RVR (HC) Take 1 Tablet (100 mg) by mouth two times daily. 180 Tablet 3 4 Active dilTIAZem CD (CARDIZEM CD) 180 mg extended release 24 hr capsuleIndications: Atrial fibrillation with RVR (HC) Take 1 Capsule (180 mg) by mouth once daily. 90 Capsule 3 4 Active Syringe with Needle, Disp, (B-D TB Syringe 1cc/25Gx5/8) 1 mL 25 gauge x 5/8 Use once a week with methotrexate 100 Each 4 Active methotrexate 25 mg/mL injectionIndication s:Rheumatoid arthritis with negative rheumatoid factor, involving unspecified site (HC) Inject 0.6 mL [15 mg] under the skin once a week 4 mL 5 4 Active loperamide (Anti-Diarrheal) 2 mg capsuleIndications: Chronic diarrhea Take 1 Capsule (2 mg) by mouth each time if needed for Diarrhea. Take 2 capsules (4mg) orally with 1st loose stool, then 1 capsule (2mg) with other loose stools. Max 16 mg in 24 hrs. 180 Capsule 3 4 Active loperamide (Anti-Diarrheal) 2 mg capsule Take 2 mg by mouth each time if needed for Diarrhea. Take 2 capsules (4mg) orally with 1st loose stool, then 1 capsule (2mg) with other loose stools. Max 16 mg in 24 hrs. 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 Bone density 2023: stable bone density. Recommend continuing medication until 2026. Arthritis of left glenohumeral joint 06/05/2019 Personal history of other malignant neoplasm of skin 04/06/2018 Vaginitis, atrophic 04/06/2018 Osteoarthritis 04/05/2017 Postnasal drip 04/05/2017 Essential hypertension 03/15/2016 Overview (09/03/2018): Overview: Hypertension (HTN) Essential Benign Hyperlipidemia 03/15/2016 Vitamin D deficiency 03/15/2016 Female genital prolapse 04/16/2015 Rosacea 01/14/2010 Resolved Problems Problem Noted Date Diagnosed Date Resolved Date Liver lesion 07/20/2023 08/18/2023 Bacteremia 07/19/2023 08/18/2023 Severe sepsis 07/17/2023 08/18/2023 Aspiration pneumonia 07/17/2023 024 Intermittent atrial fibrillation 10/09/2020 10/06/2023 Overview (10/09/2020): diagnosed spring 2020: Eliquis Chronic left shoulder pain 11/13/2019 0 10/09/2020 Impaired fasting glucose 03/15/2016 Supraventricular premature beats 07/02/2015 10/09/2020 Encounters Date Type Department Care Team Description 01/12/2024 3:45 PM CDT Office Visit [address] [phone] Jessica Zurita MD Follow Up (referral for driving assesment); Shoulder Pain/problem (right shoulder); Immunization/Injecti on (COVID-19 vaccine, flu ) 01/12/2024 Travel 12/29/2023 Telephone [facility] [address] [place] [address] Staff, Other Clinical [facility] REFERRAL 12/21/2023 10:15 AM CDT Home Care Visit [facility] [address] [place] [address], [place] [address] Noris Curran, PT PT - OASIS DISCHARGE 12/14/2023 11:30 AM CDT Home Care Visit [facility] [address] [place] [phone] Alvino Barnes, RETURNED GOODS SORTER RETURNED GOODS SORTER - DISCIPLINE DISCHARGE 12/13/[address] [phone] Jessica Zurita MD order (signed orders) 12/11/2023 1:00 PM CDT Home Care Visit [facility] [address] [place] [phone] Noris Curran, PT PT - HOME VISIT 12/07/2023 11:30 AM CDT Home Care Visit [facility] [address] [place] [phone] Alvino Barnes, RETURNED GOODS SORTER RETURNED [employer] SORTER - HOME VISIT 12/06/2023 1:30 PM CDT Orders Only [address] [phone] Lab, [facility] 12/06/2023 Travel 12/04/2023 8:30 AM CDT Home Care Visit [facility] [address] [place] [phone] Noris Curran, PT PT - HOME VISIT 11/30/2023 11:30 AM CDT Home Care Visit [facility] [address] [place] [phone] Alvino Barnes, RETURNED [employer] SORTER RETURNED [employer] SORTER - HOME VISIT 11/27/2023 1:30 PM CDT Home Care Visit [facility] [address] [place] [phone] Jasper Barrow, PT PT - HOME VISIT 11/23/2023 10:15 AM CDT Home Care Visit [facility] [address] [place] [address] Alvino Barnes, RETURNED [employer] SORTER RETURNED [employer] SORTER - REASSESSMENT 11/22/2023 9:30 AM CDT Home Care Visit [facility] [address] [place] [address] Noris Curran, PT PT - REASSESSMENT 11/19/2023 [place] [facility] [address] [place] [address] [place] [address] [employer] Refill Request (Methotrexate Pf) 11/16/2023 11:15 AM CDT Home Care Visit [facility] [address] [place] [address], [place] [address] Alvino Barnes, RETURNED GOODS SORTER RETURNED [employer] SORTER - HOME VISIT 11/15/2023 10:30 AM CDT Home Care Visit [facility] [address] [place] [phone] Pepper Arrieta LISW DIRECTOR POST - INITIAL ASSESSMENT 11/15/2023 9:30 AM CDT Home Care Visit [facility] [address] [place] [phone] Noris Curran, PT PT - HOME VISIT 11/08/2023 12:00 PM CDT Education [address] [place] [address] Medication Management (Methotrexate Teach appt) 11/08/2023 9:40 AM CDT Office Visit [facility] [place] [facility] [address] [place] [address] Hayden Waller MD Consult (Memory loss, tremor Ref: Dr. Zurita /MR Head/Brain 07/17/23 /CT Head/Brain 07/17/23 ) 11/08/2023 Travel 11/07/2023 8:30 AM CDT Home Care Visit [facility] [address] [place] [phone] Noris Curran, PT PT - HOME VISIT 11/07/[address] [place] [address] Jessica Zurita MD Medication Management 11/01/2023 11:00 AM CDT Telemedicine [address] [place] [address] [employer] Telehealth (No vitals taken); Follow Up (RA/Discuss different medication for RA (sulfasalazine stopped due to side effects on 10/25/23)) 11/01/[address] [place] [address] [employer] Refill Request (METHOTEXATE 25MG/ML PF SINGLE USE) 11/01/[address] [place] [address] [employer] visit plan 11/01/2023 Travel 10/31/2023 1:45 PM CDT Home Care Visit [facility] [address] [place] [address] Noris Curran, PT PT - HOME VISIT 10/31/2023 12:00 PM CDT Home Care Visit [facility] [address] [place] [address] Alvino Barnes, RETURNED GOODS SORTER RETURNED GOODS SORTER - HOME VISIT 10/27/[address] [place] [address] [employer] Clarification (PILLPACK BY [facility]) 10/26/2023 12:15 PM CDT Home Care Visit [facility] [address] [place] [address] Alvino Barnes, RETURNED GOODS SORTER RETURNED GOODS SORTER - INITIAL ASSESSMENT 10/25/2023 E-Visit [address] [place] [address] [employer] Diarrhea from medicine 10/23/2023 8:00 AM CDT Home Care Visit [facility] [address] [place] [phone] Gucci Woodruff, PT PT - OASIS START OF CARE 10/23/2023 Plan of Care Documentation [facility] [address] [place] [phone] 10/23/2023 Telephone [facility] [address] [place] [address] Gucci Woodruff, PT Home Care (Requesting verbal orders and medication refill needed) 10/18/2023 Home Care Visit [facility] [address] [place] [phone] Candida Cody, RN CARE COORDINATION 10/17/[address] [phone] Jessica Zurita MD Home Care from Last 3 Months Immunizations Name Administration Dates Next Due Amb Influenza, Inactivated A IIV4 (Age 65+ Years) Preserv Free 02/02/2020 COVID-19 VACCINE SPIKEVAX (M ODERNA 50MCG/0.5ML) 12YO+ PFS 01/12/2024 COVID-19 vaccine (Moderna 100mcg/0.5mL) PF, MDV 03/16/2023,11/07/2021 COVID-19 vaccine (Pfizer-Bio NTech 30mcg/0.3mL) PF, MDV 01/14/2021,06/17/2020,05/27/2020 DTaP 09/06/2004 Hepatitis A (Adult) 06/30/2005,12/12/2003 Hepatitis B (Adult) 01/24/2006,08/01/2005,2005 Hepatitis B, Unspecified 01/24/2006,08/01/2005,0 06/30/2005 Influenza A (H1N1), Inactiva andrea (Age >=3 Years) 05/12/2009 Influenza Virus, Unspecified 03/15/2016, 02/25/2015,02/05/2014,01/28,01/25/2012,01/19/2011,01/14/2010 ,01/13/2009 Influenza, High-dose Inactivated 018,03/30/2017,03/30/2017,03/15,02/25/2015 Influenza, IIV3 (Age >=3 years) 01/25/20 12,01/13/2009,01/25/2008,01/24,02/21/2007,02/21/2007,02/28/2006 ,02/28/2006 Influenza, Inactivated AIIV4 (Age 65+ Years) Preserv Free 03/16/2023,02/08/2022,01/14/2021 Influenza, Inactivated IIV3 (Age 65+ Years) Preserv Free 01/12/2024,04/02/2019 Pneumococcal Poly,23-Valent (Pneumovax) 09/06/2004 Pneumococcal conj 13-Valent (Prevnar 13) 02/25/2015 RSV, Bivalent Vaccine Recons tituted (Abrysvo 120MCG/0.5mL) 03/16/2023 Td (Age >=7 Years) 02/05/2014,08/15/2002 Tdap 02/05/2014 Typhoid (injectable) 07/21/2006 Typhoid Parenteral,Killed 07/21/2006,12/12/2003 Zoster (Shingrix-RZV, recombinant) 11/22/2017, Zoster (Zostavax-ZVL, live) 10/27/2006 Family History Medical History Relation Name Comments Cancer-breast Paternal Grandmother Relation Name Status Comments Paternal Grandmother Social History Tobacco Use Types Packs/Day Years Used Date Smoking Tobacco: Never Smokeless Tobacco: Never Tobacco Cessation:Counseling Given: Yes Alcohol Use Standard Drinks/Week Comments Yes 0 (1 standard drink = 0.6 oz pur e alcohol) rarely PHQ-2 Answer Date Recorded PHQ-2 TOTAL SCORE 2 06/06/2023 Social Connections Answer Date Recorded Frequency of Communication with Friends and Fami ly 0 03/14/2023 Financial Resource Strain Answer Date R ecorded Difficulty of Paying Living Expenses 3 03/14/2023 Difficulty of Paying Living Expenses Not on file 03/14/2023 Food Insecurity Answer Date Recorded Worried About Running Out of Food in the Last Ye ar 1 03/14/2023 Transportation Needs Answer Date Record ed Lack of Transportation (Medical) 1 03/14/2023 Housing Stability Answer Date Recorded Unable to Pay for Housing in the Last Year 1 03/14/2023 Sex and Gender Information Value Date Recorded Sex Assigned at Female 07/10/2020 10:29 AM CDT Gender Identity Female 07/10/2020 10:29 AM CDT Sexual Orientation Straight 07/10/2020 10 :29 AM CDT Obstetrics History Para Term AB IAB SAB Ectopic Multiple Livin g Live Births 3 3 3 Date Outcome GA Total Labor Labor/2nd/3rd Weight Sex Type Anes PTL Ayleen A1 A5 Name Clin Term Term Term Last Filed Vital Signs Vital Sign Reading Time Taken Comments Blood Pressure 120/80 01/12/2024 3:56 PM CDT Pulse 92 01/12/2024 3:56 PM CDT Temperature 36.8 ??C (98.2 ??F) 12/21/2023 1 0:33 AM CDT Respiratory Rate 18 12/21/2023 10:3 3 AM CDT Oxygen Saturation 96% 01/12/2024 3:56 PM CDT Inhaled Oxygen Concentration - - Weight 68.9 kg (151 lb 14.4 oz) 01/12/2024 3:56 PM CDT Height 165.1 cm (5' 5) 08/09/2023 4:00 PM CDT Body Mass Index 25.28 08/09/2023 4:00 PM CDT Plan of Treatment Upcoming Encounters Date Type Department Care Team (Late st Contact Info) Description 01/17/2024 10:00 AM CDT Appointment [facility] [address] [place] [address] 01/26/2024 12:00 PM CDT Telemedicine [facility] [place] [address] [place] [phone] Donn Song MD [address] [place] [address] 02/19/2024 9:10 AM SENSITOMETRIST Orders Only [facility] [address] [place] [address] Lab, [facility] 02/22/2024 11:30 AM SENSITOMETRIST [place]medicine [facility] [address] [place], [place] [address] [employer] [address] [place], [place] [address] 06/14/2024 3:30 PM SENSITOMETRIST Office Visit [facility] [address] [place] [address] Jessica Zurita MD [address] [place] [address] Health Maintenance Due Date Last Done Comments Tetanus booster 02/06/2024 02/05/2014, 01/16, 08/15/2002 COVID-19 vaccine series ( season) 2024 01/12/2024, 03/16/2023, 02/08/2022, Additional history exists BMI (ht and wt on same day) for age 18+ 03/14/2024 03/14/2023, 02/28/2023, 12/06/2022, Additional history exists Depression screening for age 12+ 06/06/2024 06/06/2023, 06/06/2023, 06/01/2022, Additional history exists Medicare Wellness for age 65+ 06/06/2024, 05/31/2022, 05/21/2021, Additional history exists Tdap Completed 02/05/2014 Pneumococcal series for age 65+ Completed 5, 09/06/2004 Zoster (shingles) series for age 50+ Completed 11/22/2017, 08/16/2017, 10/27/2006 RSV vaccine for adults or Completed 03/16/2023 DEXA/DXA scan for age 65+ Completed 2023, 05/17/2021, 05/10/2019 Influenza for age 65+ Completed 01/12/2024 , 03/16/2023, 02/08/2022, Additional history exists Procedures Procedure Name Priority Date/Time Associated Diagnosis Comments CBC WITH AUTO DIFFERENTIAL Routine 12/06/2023 1:23 PM CDT Rheumatoid arthritis with negative rheumatoid factor, involving unspecified site (HC) HEPATIC FUNCTION PANEL Routine 12/06/2023 1:23 PM CDT Rheumatoid arthritis with negative rheumatoid factor, involving unspecified site (HC) CBC WITH AUTO DIFFERENTIAL Routine 12/06/2023 1:23 PM CDT Rheumatoid arthritis with negative rheumatoid factor, involving unspecified site (HC) XR DXA BONE DENSITY 2 SITES AXIAL Routine 06/19/2023 10:24 AM SENSITOMETRIST Post-menopause from Last 3 Months or Most Recently Relevant to Health Maintenance Results * (ABNORMAL) CBC WITH AUTO DIFFERENTIAL (12/06/2023 1:23 PM CDT) WHITE BLOOD COUNT 11.3(H) 4.5 - 11.0 thou/cu mm 12/06/2023 1:31 PM [facility] RED BLOOD COUNT 4.76 4.00 - 5.20 mil/cu mm 12/06/2023 1:31 PM [facility] HEMOGLOBIN 14.8 12.0 - 16.0 g/dL 12/06/2023 1:31 PM [facility] HEMATOCRIT 43.1 33.0 - 51.0 % 12/06/2023 1:31 PM [facility] MCV 91 80 - 100 fL 12/06/2023 1:31 PM [facility] MCH 31.1 26.0 - 34.0 pg 12/06/2023 1:31 PM [facility] MCHC 34.3 32.0 - 36.0 g/dL 12/06/2023 1:31 PM [facility] RDW 16.7(H) 11.5 - 15.5 % 12/06/2023 1:31 PM [facility] PLATELET COUNT 280 140 - 440 thou/cu mm 12/06/2023 1:31 PM T [facility] MPV 9.5 6.5 - 11.0 fL 12/06/2023 1:31 PM T [facility] % NEUT 83.5 % 12/06/2023 1:31 PM T [facility] % LYMPH 8.6 % 12/06/2023 1:31 PM [facility] % MONO 7.2 % 12/06/2023 1:31 PM T [facility] % EOS 0.4 % 12/06/2023 1:31 PM T [facility] % BASO 0.3 % 12/06/2023 1:31 PM [facility] ABSOLUTE NEUTROPHILS 9.5(H) 1.7 - 7.0 thou/cu mm 12/06/2023 1:31 PM [facility] ABSOLUTE LYMPHOCYTES 1.0 0.9 - 2.9 thou/cu mm 12/06/2023 1:31 PM [facility] ABSOLUTE MONOCYTES 0.8 <0.9 thou/cu mm 12/06/2023 1:31 PM [facility] ABSOLUTE EOSINOPHILS 0.0 <0.5 thou/cu mm 12/06/2023 1:31 PM [facility] ABSOLUTE BASOPHILS 0.0 <0.3 thou/cu mm 12/06/2023 1:31 PM [facility] Blood BLOOD SPECIMEN / Unknown Venipuncture / Unknown 12/06/2023 1:23 PM CDT 12/06/2023 1:23 PM CDT [facility] - 12/06/2023 1:31 PM CDT This procedure was originally ordered at [facility] H[facility] [address] [place] [address] * (ABNORMAL) HEPATIC FUNCTION PANEL (12/06/2023 1:23 PM CDT) ALBUMIN 3.9(L) 4.0 - 4.9 g/dL 12/06/2023 1:48 PM CDT [facility] PROTEIN,TOTAL 6.6 6.0 - 8.0 g/dL 12/06/2023 1:48 PM CDT [facility] BILIRUBIN,TOTAL 0.8 0.0 - 1.2 mg/dL 12/06/2023 1:48 PM T [facility] BILIRUBIN,DIRECT 0.3(H) 0.0 - 0.2 mg/dL 12/06/2023 1:48 PM T [facility] BILIRUBIN,INDIRE CT 0.5 0.2 - 0.8 mg/dL 12/06/2023 1:48 PM CDT [facility] ALK PHOSPHATASE 71 35 - 104 IU/L 12/06/2023 1:48 PM T [facility] ALT (SGPT) 16 10 - 35 IU/L 12/06/2023 1:48 PM T [facility] AST (SGOT) 27 10 - 35 IU/L 12/06/2023 1:48 PM T [facility] Blood BLOOD SPECIMEN / Unknown Venipuncture / Unknown 12/06/2023 1:23 PM CDT 12/06/2023 1:23 PM CDT [facility] CHEMISTRY [facility] [address] [place] [address] * (ABNORMAL) XR DXA BONE DENSITY 2 SITES AXIAL (06/19/2023 10:24 AM SENSITOMETRIST) Anatomical Region Laterality Modality Spine, HIPS, HIPL, HIPR Computed Radiography Impressions 06/30/2023 4:45 PM CDT Osteopenia. Due to the stability of the bone density, continue present medication if indicated. RECOMMENDATIONS: The National Osteoporosis Foundation recommends pharmacologic treatment for patients with T-scores of -2.5 or less, patients with prior history of fragility fractures, or patients with 10-year probability of greater than 3% at hips or greater than 20% of suffering major osteoporotic fractures. Recommend continued optimization of calcium and vitamin D intake through dietary means and/or supplementation and regular exercise. Continue current Alendronate (Fosamax) medication treatment. Consider a drug holiday from bisphosphonates if indicated. ??Follow up in 2 years. Eva Kwon PA-C [facility] 06/30/2023 Narrative 06/30/2023 4:45 PM CDT For Patients: Results are automatically released [facility] account once available, in compliance with federal regulations. This means that you may see your results before your provider has had a chance to review them. Please allow 2-3 business days for your provider to comment on the results. XR DXA Bone Mineral Density (BMD) EXAM LOCATION: [address] [address] PATIENT NAME: Fernanda Wolfe DATE OF : 1940 EXAM DATE: 06/19/2023 REQUESTING PROVIDER: Jessica Zurita MD GENDER AT : female HEIGHT: 5' 5 (03/14/2023) WEIGHT: ??164 lb 4.8 oz (06/06/2023) MENOPAUSAL STATUS: Postmenopausal RACE/ETHNICITY: White RISK FACTORS: Advanced Age, Height Loss (2 inches or more), Low Calcium Intake, and White Race CURRENT MEDICATION FOR BONE LOSS: Alendronate (Fosamax) INDICATION: Post-Menopause COMPARISON DATE(S): 2021 DXA scans are compared to prior studies for a patient only when the two (or more) studies were performed on the same scanner. It is not possible to compare data generated on one scanner to data from another because there are not standards in DXA equipment. This applies even if the two scanners are made by the same recruitment internship. PROCEDURE: Dual-energy x-ray absorptiometry performed with routine technique. Reporting is completed in the form of a T-score. The T-score represents the standard deviation from peak bone mass based on young healthy adult. A Z-score is used for diagnosis in premenopausal women, and for men under the age of 50. FINDINGS: RESULT LUMBAR SPINE L1-L4 (EXCLUDING L2) ??BMD: 1.062 g/cm2 T-Score: - 0.9 Z-Score: + 0.7 Change from prior in 2021: ??Increase 2.9%. RESULTS FEMUR Left femoral neck BMD: 0.824 g/cm2 T-Score: - 1.5 Z-Score: + 0.6 Change from prior in 2021: ??Decrease 3.1%. Right femoral neck BMD: 0.950 g/cm2 T-Score: - 0.6 Z-Score: + 1.5 Change from prior in 2021: ??Increase 3.9%. Left hip BMD: 0.958 g/cm2 T-Score: - 0.4 Z-Score: + 1.6 Change from prior in 2021: ??Increase 3.9%. Right hip BMD: 0.973 g/cm2 T-Score: - 0.3 Z-Score: + 1.7 Change from prior in 2021: ??Increase 2.0%. WHO criteria: Normal: T-score at or above -1 SD Osteopenia: T-score between -1.1 and -2.4 SD Osteoporosis: T-score at or below -2.5 SD FRAX RISK CALCULATION (USED FOR OSTEOPENIA ONLY): 10-year probability of major osteoporotic fracture: 13.8%. 10-year probability of hip fracture: 3.7%. 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 Healthcare Directive 10/11/2023 024 Healthcare Directive 11/16/2012 12:00 AM AD GARCIA DIRECTIVE * Full Code (Latest Code Status on File) Date Activated Date Inactivated Comments 07/17/2023 8:36 PM 07/24/2023 4:58 PM Question Answer Comments Code Status Discussion: Reviewed Preferences Care Teams Director Medical Economics Relationship Specialty Start Date End Date Jessica Zurita MD [address] [facility] [facility] [place] [address] PCP - General Family Practice 08/13/18 Latonya Euceda, RN [address] [facility] [place] [place] [address] Registered Nurse Registered Nurse 09/06/22
--- NOTE | 2024-01-16 10:15 | CRLHL7_ITS ---
For Patients: As a result of the 21st Century Cures Act, medical imaging exams and procedure reports are released immediately into your electronic medical record. You may view this report before your referring provider. If you have questions, please contact your health care provider. INDICATION: Memory loss, tremor, carotid cavernous fistula. TECHNIQUE: 3D TOF and contrast-enhanced MRA. FINDINGS: There are markedly enlarged superior orbital veins noted on the contrast enhanced portion of the examination. However, on the [id number] portion, there is no evidence for increased signal here. As well, the cavernous sinuses do not have arterial signal. There is otherwise normal signal throughout the intracranial vasculature. There is no large vessel occlusion or significant intracranial stenosis. No aneurysm or evidence for vascular malformation is identified. IMPRESSION: Markedly dilated superior orbital veins, though no evidence for early venous shunting, at least at MRA, to suggest an arteriovenous fistula. If there is clinical concern for carotid cavernous fistula, catheter angiography would be helpful for more definitive evaluation. Jerel Dave MD Neurointerventional Radiologist [facility] [place] Dictated by Jerel Dave MD @ 01/16/2024 9:26:22 PM (Electronically Signed)
== END 2024-01-16 09:54 | disposition home or self-care (01) ==
LOC: MRI 09:56
PROVIDERS: PCP Family Medicine
DX: R41.3 Other amnesia (principal); I77.0 Arteriovenous fistula, acquired
CPT/HCPCS: 70546; A9575